=== PATIENT | female | born 1965 | race Two or more races ===

== ENCOUNTER 2016-11-17 01:39 | Emergency (ER) | payer SELFPAY ==
[~2016-11-17] VITALS: Ht 170.2 cm; Wt 83.9 kg
[~2016-11-17 01:39] MED LIST: DAPA5TAB PO; OMEP20CA5 PO
[2016-11-17 01:52] VITALS: BP 172/84
--- NOTE | 2016-11-17 03:40 | PHYS DOC ---
Past Medical History Past Medical History: Anxiety, Diabetes-Type II, GERD Past Surgical History: No Surgical History Alcohol Use: None Drug Use: None Adult General Chief Complaint Chief Complaint: ANXIETY/PANIC ATTACK [facility] This is a 51-year-old female who has known history of anxiety that awoke tonight with a panic attack. She states she had some mild chest discomfort as well as nausea prior to arrival. Upon my assessment the patient states her symptoms are improving and she is not requesting any medications at this times. She denies any significant history of health problems. Currently she denies any chest pain or shortness of breath. She is in no acute distress and talking in complete sentences. She states she has had anxiety attacks before that have presented similarly. She is unsure why she is having this episode. She denies any suicidal or homicidal ideation. Review of Systems Review of Systems Constitutional: Denies fever or chills [] Eyes: Denies change in visual acuity, redness, or eye pain [] HENT: Denies nasal congestion or sore throat [] Respiratory: Denies cough or shortness of breath [] Cardiovascular: No additional information not addressed in HPI [] GI: Denies abdominal pain, nausea, vomiting, bloody stools or diarrhea [] : Denies dysuria or hematuria [] Musculoskeletal: Denies back pain or joint pain [] Integument: Denies rash or skin lesions [] Neurologic: Denies headache, focal weakness or sensory changes [] Endocrine: Denies polyuria or polydipsia [] Allergies Allergies Allergies Coded Allergies Type Severity Reaction Last Updated Verified No Known Drug Allergies 05/08/15 No Physical Exam Physical Exam Constitutional: Well developed, well nourished, no acute distress, non-toxic appearance. [] HENT: Normocephalic, atraumatic, bilateral external ears normal, oropharynx moist, no oral exudates, nose normal. [] Eyes: PERRLA, EOMI, conjunctiva normal, no discharge. [] Neck: Normal range of motion, no tenderness, supple, no stridor. [] Cardiovascular:Heart rate regular rhythm, no murmur [] Lungs & Thorax: Bilateral breath sounds clear to auscultation [] Abdomen: Bowel sounds normal, soft, no tenderness, no masses, no pulsatile masses. [] Skin: Warm, dry, no erythema, no rash. [] Back: No tenderness, no CVA tenderness. [] Extremities: No tenderness, no cyanosis, no clubbing, ROM intact, no edema. [] Neurologic: Alert and oriented X 3, normal motor function, normal sensory function, no focal deficits noted. [] Psychologic: Affect normal, judgement normal, mood normal. [] Current Patient Data Vital Signs Vital Signs Date Time Temp Pulse Resp B/P Pulse Ox O2 Delivery O2 Flow Rate FiO2 11/17/16 01:52 98.5 82 20 98 Room Air 98.5 EKG EKG [] Radiology/Procedures Radiology/Procedures [] Course & Med Decision Making Course & Med Decision Making Pertinent Labs and Imaging studies reviewed. (See chart for details) This 51-year-old female was observed in the department for several hours and is now symptom free. Her symptoms were typical for panic attacks that she has had before. There is no indication at this time do any laboratory testing. Patient is not requesting any medications. She is not homicidal or suicidal. We will be discharging her home to follow closely for her anxiety symptoms. Dragon Disclaimer Dragon Disclaimer This electronic medical record was generated, in whole or in part, using a voice recognition dictation system. Departure Departure Impression: Primary Impression: Acute anxiety Disposition: 01 HOME, SELF-CARE Admitting Physician: Other Condition: STABLE Referrals: NON,STAFF (PCP) Patient Instructions: Anxiety and Panic Attacks, [id number] Additional Instructions: Please follow up with your primary doctor in the next 2-3 days for your anxiety attack. Return to the ER if you develop any worsening of your symptoms. ARRON ARMSTRONG DO Nov 17, 2016 03:40
== END 2016-11-17 03:49 | disposition home or self-care (01) ==
LOC: ER 01:39
DX: F41.9 Anxiety disorder, unspecified (principal); R11.0 Nausea; E11.9 Type 2 diabetes mellitus without complications; K21.9 Gastro-esophageal reflux disease without esophagitis
CPT/HCPCS: 82947; 99282; 99284

== ENCOUNTER 2017-08-21 23:45 | Emergency (ER) | payer SELFPAY ==
[~2017-08-21] VITALS: Ht 170.2 cm; Wt 90.7 kg
[~2017-08-21 23:45] MED LIST changes: +DICY10CA53 PO
[2017-08-22] MEDS ORDERED: ONDANSETRON PF 4 MG/2 ML VIAL. IV ONE (00:15)
[2017-08-22] MEDS ORDERED: IV NORMAL SALINE 1000ML BAG 1,000 ML IV ONE (00:15)
[2017-08-22 00:46] LABS: BASO % 0 % (0-3); EOS % 2 % (0-3); HEMATOCRIT 38.2 % (36.0-47.0); HEMOGLOBIN 12.8 g/dL (12.0-15.5); LYMPH # 2.4 x10^3/uL (1.0-4.8); LYMPH % 27 % (24-48); MEAN CORPUSCULAR HEMOGLOBIN 30 pg (25-35); MEAN CORPUSCULAR HGB CONC 34 g/dL (31-37); MEAN CORPUSCULAR VOLUME 90 fL (79-100); MONO % 6 % (0-9); NEUT % 65 % (31-73); PLATELET COUNT 237 x10^3/uL (140-400); RED BLOOD COUNT 4.23 x10^6/uL (3.50-5.40); RED CELL DISTRIBUTION WIDTH 13.8 % (11.5-14.5); WHITE BLOOD COUNT 8.7 x10^3/uL (4.0-11.0)
[2017-08-22 00:51] LABS: BILIRUBIN,URINE NEGATIVE (NEG); GLUCOSE,URINE >=1000 mg/dL (NEG); NITRITE,URINE NEGATIVE (NEG); PROTEIN,URINE NEGATIVE (NEG-TRACE); UROBILINOGEN,URINE 0.2 mg/dL (0.2 mg/dL)
[2017-08-22 00:58] LABS: BACTERIA,URINE 0 /HPF (0-FEW); RBC,URINE OCC /HPF (0-2); SQUAMOUS EPITHELIAL CELL,UR FEW /LPF; WBC,URINE OCC /HPF (0-4)
[2017-08-22 01:00] LABS: CALCIUM 9.6 mg/dL (8.5-10.1); CREATININE 0.8 mg/dL (0.6-1.0); GFR 75.9; POTASSIUM 4.4 mmol/L (3.5-5.1)
[2017-08-22 01:02] LABS: NEG OBC UR NEG; POS OBC UR POS
[2017-08-22 01:06] LABS: ALBUMIN 3.5 g/dL (3.4-5.0); ALBUMIN/GLOBULIN RATIO 0.8 (1.0-1.7); TOTAL BILIRUBIN 0.1 mg/dL (0.2-1.0); TOTAL PROTEIN 7.8 g/dL (6.4-8.2)
--- NOTE | 2017-08-22 01:48 | PHYS DOC ---
Past Medical History Past Medical History: Anxiety, Diabetes-Type II, GERD, Hypertension Past Surgical History: Other Additional Past Surgical Histo: RIGHT ANKLE Alcohol Use: None Drug Use: None Adult General Chief Complaint Chief Complaint: HYPERGLYCEMIA HPI HPI Patient is a 52 year old female with a history of type 2 diabetes and hypertension presents here today secondary to generalized weakness hyperglycemia and diarrhea. Patient denies any other symptomatology. Patient has any fevers shakes chills nausea vomiting cough cold Raynaud's. Patient denies any URI symptoms. Patient denies any change in her medications. Patient reports that she has been noncompliant with her Glucophage. Patient reports that she had in a rash with her and told her doctor and she is no longer taking it. Patient denies any liver kidney or lung problems. Patient does not smoke drink or do any drugs. Patient is allergic to any medications. Physical Exam Review of systems: Constitutional: Denies fever or chills Eyes: Denies change in visual acuity, redness, or eye pain HENT: Denies nasal congestion or sore throat Respiratory: Denies cough or shortness of breath All other systems were reviewed and found to be within normal limits, except as documented in this note. Physical exam: Constitutional: Well developed, well nourished, no acute distress, non-toxic appearance. HENT: Normocephalic, atraumatic, bilateral external ears normal, oropharynx moist, no oral exudates, nose normal. Eyes: PERRLA, EOMI, conjunctiva normal, no discharge. Neck: Normal range of motion, no tenderness, supple, no stridor. Cardiovascular:Heart rate regular rhythm, Lungs & Thorax: Bilateral breath sounds clear to auscultation Abdomen: Bowel sounds normal, soft, no tenderness, no masses, no pulsatile masses. Skin: Warm, dry, no erythema, no rash. Back: No tenderness, no CVA tenderness. Extremities: No tenderness, no cyanosis, no clubbing, ROM intact, no edema. Neurologic: Alert and oriented X 3, normal motor function, normal sensory function, no focal deficits noted. Psychologic: Affect normal, judgement normal, mood normal. Assessment and plan: 52-year-old female who presents here today secondary to an elevated blood sugar. Patient's blood sugar was found to be 213 in the ER. Patient does not have an anion gap. There is no evidence of acidosis. Patient does not present with any signs or symptoms that'll be consistent with DKA. Patient does appear to be clinically dehydrated by her symptoms. Patient has diarrhea and hyperglycemia. Patient was given a liter of normal saline the ER. Patient's labs have all been within normal limits. Patient be discharged home with strict instructions to call her doctor in the morning for an appointment as soon as possible so they can readjust her diabetes medications. Patient is clinically and hemodynamically stable for discharged home and she is very comfortable with this plan at this time. Current Medications Current Medications Current Medications Medications (Trade) Dose Ordered Sig/Sylvia Start Time Stop Time Status Last Admin Dose Admin Ondansetron HCl (Zofran) 4 mg 1X ONCE 08/22/17 00:15 08/22/17 00:16 DC 08/22/17 01:09 4 MG Sodium Chloride 1,000 ml @ 1,000 mls/hr 1X ONCE 08/22/17 00:15 08/22/17 01:14 DC 08/22/17 01:09 1,000 MLS/HR Allergies Allergies Allergies Coded Allergies Type Severity Reaction Last Updated Verified No Known Drug Allergies 05/08/15 No Current Patient Data Vital Signs Vital Signs Date Time Temp Pulse Resp B/P (MAP) Pulse Ox O2 Delivery O2 Flow Rate FiO2 08/22/17 00:15 98.6 90 16 138/89 (105) 96 Room Air 98.6 Lab Values Laboratory Tests Test 08/22/17 00:16 08/22/17 00:40 08/22/17 00:45 Glucose (Fingerstick) 214 mg/dL (70-99) H White Blood Count 8.7 x10^3/uL (4.0-11.0) Red Blood Count 4.23 x10^6/uL (3.50-5.40) Hemoglobin 12.8 g/dL (12.0-15.5) Hematocrit 38.2 % (36.0-47.0) Mean Corpuscular Volume 90 fL (79-100) Mean Corpuscular Hemoglobin 30 pg (25-35) Mean Corpuscular Hemoglobin Concent 34 g/dL (31-37) Red Cell Distribution Width 13.8 % (11.5-14.5) Platelet Count 237 x10^3/uL (140-400) Neutrophils (%) (Auto) 65 % (31-73) Lymphocytes (%) (Auto) 27 % (24-48) Monocytes (%) (Auto) 6 % (0-9) Eosinophils (%) (Auto) 2 % (0-3) Basophils (%) (Auto) 0 % (0-3) Neutrophils # (Auto) 5.7 x10^3uL (1.8-7.7) Lymphocytes # (Auto) 2.4 x10^3/uL (1.0-4.8) Monocytes # (Auto) 0.5 x10^3/uL (0.0-1.1) Eosinophils # (Auto) 0.1 x10^3/uL (0.0-0.7) Basophils # (Auto) 0.0 x10^3/uL (0.0-0.2) Urine Collection Type Unknown Urine Color Yellow Urine Clarity Clear Urine pH 6.0 Urine Specific [place] >=1.030 Urine Protein Negative mg/dL (NEG-TRACE) Urine Glucose (UA) >=1000 mg/dL (NEG) Urine Ketones (Stick) Negative mg/dL (NEG) Urine Blood Negative (NEG) Urine Nitrite Negative (NEG) Urine Bilirubin Negative (NEG) Urine Urobilinogen Dipstick 0.2 mg/dL (0.2 mg/dL) Urine Leukocyte Esterase Negative (NEG) Urine RBC Occ /HPF (0-2) Urine WBC Occ /HPF (0-4) Urine Squamous Epithelial Cells Few /LPF Urine Bacteria 0 /HPF (0-FEW) Sodium Level 138 mmol/L (136-145) Potassium Level 4.4 mmol/L (3.5-5.1) Chloride Level 103 mmol/L (98-107) Carbon Dioxide Level 25 mmol/L (21-32) Anion Gap 10 (6-14) Blood Urea Nitrogen 17 mg/dL (7-20) Creatinine 0.8 mg/dL (0.6-1.0) Estimated GFR (Cockcroft-Gault) 75.9 BUN/Creatinine Ratio 21 (6-20) H Glucose Level 224 mg/dL (70-99) H Calcium Level 9.6 mg/dL (8.5-10.1) Total Bilirubin 0.1 mg/dL (0.2-1.0) L Aspartate Amino Transferase (AST) 15 U/L (15-37) Alanine Aminotransferase (ALT) 28 U/L (14-59) Alkaline Phosphatase 135 U/L (46-116) H Total Protein 7.8 g/dL (6.4-8.2) Albumin 3.5 g/dL (3.4-5.0) Albumin/Globulin Ratio 0.8 (1.0-1.7) L Urine Test Negative (NEG) Laboratory Tests 08/22/17 00:40 Laboratory Tests 08/22/17 00:40 EKG EKG [] Radiology/Procedures Radiology/Procedures [] Course & Med Decision Making Course & Med Decision Making Pertinent Labs and Imaging studies reviewed. (See chart for details) [] Dragon Disclaimer Dragon Disclaimer This electronic medical record was generated, in whole or in part, using a voice recognition dictation system. Departure Departure Impression: Primary Impression: Hyperglycemia Additional Impressions: Diarrhea Dehydration Disposition: 01 HOME, SELF-CARE Condition: IMPROVED Referrals: NO PCP (PCP) Patient Instructions: 2400 Calorie Diet for Diabetes Meal Planning, Hyperglycemia Problem Qualifiers TEZ GREEN MD Aug 22, 2017 01:48
[2017-08-22 01:50] VITALS: BP 147/84
== END 2017-08-22 02:05 | disposition home or self-care (01) ==
LOC: ER 23:45
DX: E11.65 Type 2 diabetes mellitus with hyperglycemia (principal); E86.0 Dehydration; F41.9 Anxiety disorder, unspecified; I10 Essential (primary) hypertension; K21.9 Gastro-esophageal reflux disease without esophagitis
CPT/HCPCS: 36415; 80053; 81001; 81025; 82962; 85025; 96361; 96374; 99284; J2405; J7030

== ENCOUNTER 2017-10-13 01:27 | Emergency (ER) | payer OTHER ==
[2017-10-13 02:00] LABS: POC GLUCOSE 176 mg/dL (70-99)
[2017-10-13] MEDS: ONDANSETRON ODT 4 MG TAB.RAPDIS. PO (02:09)
[2017-10-13 03:01] LABS: BILIRUBIN,URINE NEGATIVE (NEG); CLARITY,URINE CLEAR; COLOR,URINE YELLOW; GLUCOSE,URINE >=1000 mg/dL (NEG); NITRITE,URINE NEGATIVE (NEG); PROTEIN,URINE NEGATIVE (NEG-TRACE); UROBILINOGEN,URINE 0.2 mg/dL (0.2 mg/dL)
[2017-10-13 03:28] LABS: BACTERIA,URINE 0 /HPF (0-FEW); RBC,URINE 0 /HPF (0-2); SQUAMOUS EPITHELIAL CELL,UR FEW /LPF; WBC,URINE 0 /HPF (0-4)
== END 2017-10-13 03:42 | disposition home or self-care (01) ==
LOC: ER 01:27
DX: E11.65 Type 2 diabetes mellitus with hyperglycemia (principal); R11.0 Nausea; K21.9 Gastro-esophageal reflux disease without esophagitis; I10 Essential (primary) hypertension
CPT/HCPCS: 81001; 82962; 99284; Q0162

== ENCOUNTER 2017-12-21 07:28 | Emergency (ER) | payer OTHER ==
[2017-12-21 08:29] LABS: BILIRUBIN,URINE NEGATIVE (NEG); CLARITY,URINE CLEAR; COLOR,URINE YELLOW; GLUCOSE,URINE NEGATIVE (NEG); NITRITE,URINE NEGATIVE (NEG); PROTEIN,URINE NEGATIVE (NEG-TRACE)
[2017-12-21 08:51] LABS: BACTERIA,URINE 0 /HPF (0-FEW); RBC,URINE 0 /HPF (0-2); SQUAMOUS EPITHELIAL CELL,UR FEW /LPF; WBC,URINE 0 /HPF (0-4)
[2017-12-21 09:02] LABS: ADD MAN DIFF? NO
[2017-12-21 09:06] LABS: BASO % 1 % (0-3); EOS # 0.1 x10^3/uL (0.0-0.7); EOS % 1 % (0-3); HEMATOCRIT 38.7 % (36.0-47.0); HEMOGLOBIN 13.1 g/dL (12.0-15.5); LYMPH % 24 % (24-48); MEAN CORPUSCULAR HEMOGLOBIN 30 pg (25-35); MEAN CORPUSCULAR HGB CONC 34 g/dL (31-37); MEAN CORPUSCULAR VOLUME 89 fL (79-100); MONO # 0.4 x10^3/uL (0.0-1.1); MONO % 5 % (0-9); NEUT # 5.8 x10^3uL (1.8-7.7); NEUT % 69 % (31-73); PLATELET COUNT 242 x10^3/uL (140-400); RED BLOOD COUNT 4.36 x10^6/uL (3.50-5.40); RED CELL DISTRIBUTION WIDTH 14.5 % (11.5-14.5); WHITE BLOOD COUNT 8.4 x10^3/uL (4.0-11.0)
[2017-12-21] MEDS: IV NORMAL SALINE 1000ML BAG 1,000 ML IV (09:16)
[2017-12-21] MEDS: ONDANSETRON PF 4 MG/2 ML VIAL. IV (09:16)
[2017-12-21 09:22] LABS: ANION GAP 10 (6-14); BLOOD UREA NITROGEN 11 mg/dL (7-20); BUN/CREATININE RATIO 16 (6-20); CALCIUM 9.6 mg/dL (8.5-10.1); CARBON DIOXIDE 28 mmol/L (21-32); CHLORIDE 103 mmol/L (98-107); CREATININE 0.7 mg/dL (0.6-1.0); GFR 88.6; GLUCOSE 160 mg/dL (70-99); POTASSIUM 3.8 mmol/L (3.5-5.1); SODIUM 141 mmol/L (136-145)
[2017-12-21 09:28] LABS: ALBUMIN 3.7 g/dL (3.4-5.0); ALBUMIN/GLOBULIN RATIO 0.8 (1.0-1.7); ALK PHOS 129 U/L (46-116); ALT (SGPT) 36 U/L (14-59); AST (SGOT) 14 U/L (15-37); TOTAL BILIRUBIN 0.3 mg/dL (0.2-1.0); TOTAL PROTEIN 8.2 g/dL (6.4-8.2)
[2017-12-21 23:21] LABS: NEG OBC UR NEG; POS OBC UR POS; U PREG PATIENT NEGATIVE (NEG)
== END 2017-12-21 10:08 | disposition home or self-care (01) ==
LOC: ER 07:28
DX: R10.13 Epigastric pain (principal); R11.2 Nausea with vomiting, unspecified; R19.7 Diarrhea, unspecified; E11.9 Type 2 diabetes mellitus without complications; I10 Essential (primary) hypertension; K21.9 Gastro-esophageal reflux disease without esophagitis
CPT/HCPCS: 36415; 80053; 81001; 81025; 85025; 96361; 96374; 99284-25; J2405; J7030

== ENCOUNTER 2017-12-21 22:48 | Emergency (ER) | payer OTHER ==
[2017-12-21 23:11] LABS: BILIRUBIN,URINE NEGATIVE (NEG); CLARITY,URINE CLOUDY; COLOR,URINE YELLOW; GLUCOSE,URINE NEGATIVE (NEG); NITRITE,URINE NEGATIVE (NEG); PROTEIN,URINE NEGATIVE (NEG-TRACE)
[2017-12-21 23:15] LABS: BACTERIA,URINE 0 /HPF (0-FEW); RBC,URINE 0 /HPF (0-2)
[2017-12-21 23:16] LABS: SQUAMOUS EPITHELIAL CELL,UR MOD /LPF
[2017-12-21 23:45] LABS: ADD MAN DIFF? NO
[2017-12-21 23:49] LABS: BASO % 1 % (0-3); EOS # 0.1 x10^3/uL (0.0-0.7); EOS % 1 % (0-3); HEMATOCRIT 35.6 % (36.0-47.0); HEMOGLOBIN 11.9 g/dL (12.0-15.5); LYMPH # 3.3 x10^3/uL (1.0-4.8); LYMPH % 36 % (24-48); MEAN CORPUSCULAR HEMOGLOBIN 30 pg (25-35); MEAN CORPUSCULAR HGB CONC 34 g/dL (31-37); MEAN CORPUSCULAR VOLUME 88 fL (79-100); MONO # 0.7 x10^3/uL (0.0-1.1); MONO % 7 % (0-9); NEUT % 55 % (31-73); PLATELET COUNT 283 x10^3/uL (140-400); RED BLOOD COUNT 4.02 x10^6/uL (3.50-5.40); RED CELL DISTRIBUTION WIDTH 14.5 % (11.5-14.5); WHITE BLOOD COUNT 9.2 x10^3/uL (4.0-11.0)
[2017-12-21] MEDS: ONDANSETRON PF 4 MG/2 ML VIAL. IV (23:53)
[2017-12-21] MEDS: IV NORMAL SALINE 1000ML BAG 1,000 ML IV (23:53)
[2017-12-21 23:56] LABS: ANION GAP 9 (6-14); BLOOD UREA NITROGEN 9 mg/dL (7-20); BUN/CREATININE RATIO 13 (6-20); CALCIUM 9.3 mg/dL (8.5-10.1); CARBON DIOXIDE 27 mmol/L (21-32); CHLORIDE 105 mmol/L (98-107); CREATININE 0.7 mg/dL (0.6-1.0); GFR 88.6; GLUCOSE 128 mg/dL (70-99); POTASSIUM 3.9 mmol/L (3.5-5.1); SODIUM 141 mmol/L (136-145)
[2017-12-22 00:03] LABS: ALBUMIN 3.3 g/dL (3.4-5.0); ALBUMIN/GLOBULIN RATIO 0.8 (1.0-1.7); ALK PHOS 118 U/L (46-116); ALT (SGPT) 33 U/L (14-59); AST (SGOT) 16 U/L (15-37); LIPASE 87 U/L (73-393); TOTAL BILIRUBIN 0.2 mg/dL (0.2-1.0); TOTAL PROTEIN 7.5 g/dL (6.4-8.2)
[2017-12-22 00:14] LABS: NEG OBC UR NEG; POS OBC UR POS; U PREG PATIENT NEGATIVE (NEG)
== END 2017-12-22 01:52 | disposition home or self-care (01) ==
LOC: ER 12-22 01:52
DX: K29.70 Gastritis, unspecified, without bleeding (principal); G89.29 Other chronic pain; E11.9 Type 2 diabetes mellitus without complications; I10 Essential (primary) hypertension; K21.9 Gastro-esophageal reflux disease without esophagitis
CPT/HCPCS: 36415; 74176; 80053; 81001; 81025; 83690; 85025; 87086; 96361; 96374; 99285-25; J2405; J7030

== ENCOUNTER 2018-03-10 00:46 | Emergency (ER) | payer OTHER | END 2018-03-10 01:05 | disposition left against medical advice (07) | LOC: ER 00:46 | DX: R10.9 Unspecified abdominal pain (principal); R11.2 Nausea with vomiting, unspecified; Z53.21 Procedure and treatment not carried out due to patient leaving prior to being seen by health care provider ==

== ENCOUNTER → 2018-12-18 | Outpatient (CLI) | payer OTHER ==
[2017-12-22 00:32] VITALS: BP 167/85
[~2018-12-18] MED LIST changes: +ALBU2.5V8 INH; +AZIT250T PO; +BENZ100C PO; +HYDR115S2 PO; +LISI2.5T PO; +METF500T16 PO; +ONDA4TAB10 PO; +ONDA4TAB10 SL
--- NOTE | 2018-12-18 14:06 | KCIC ---
3 views of the right ankle compared to similar study dated October 26, 2014 for right ankle and foot pain, old injury with surgery in 1985. FINDINGS: There is no fracture, dislocation, or acute osseous abnormality identified. There is deformity about the lateral aspect of the ankle with old healed fracture of the distal fibula and tibiofibular articulation. Ankle mortise is symmetric however. Overall appearance is stable compared to the prior exam. IMPRESSION: 1. No fracture or acute osseous abnormality. 2. Old posttraumatic changes of the lateral aspect of the ankle joint. Electronically signed by: Gen Esqueda MD (12/18/2018 2:03 PM) [facility]
--- NOTE | 2018-12-18 14:12 | KCIC ---
3 views of the right foot without comparison for right ankle and foot pain, old injury with surgery in 1985. FINDINGS: There is no fracture, dislocation, or acute osseous normality identified. No ankle joint effusion is seen. Some distortion of the ankle joint is consistent with old healed ankle trauma. 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 There is also a peculiar appearance to the first tarsometatarsal joint, with a bipartite appearance to the first cuneiform, seen on the AP view of the foot. This is developmental and of doubtful clinical significance. IMPRESSION: 1. No fracture or acute osseous abnormality of the right foot. 2. 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 This is of doubtful clinical significance, but could predispose to osteoarthritis in this area which would manifest as focal pain. Electronically signed by: Gen Esqueda MD (12/18/2018 2:09 PM) [facility]
== END | disposition home or self-care (01) ==
LOC: KCIC 11:29
PROVIDERS: ATTEND Nurse Practitioner Gerontology
DX: M79.671 Pain in right foot (principal); M25.571 Pain in right ankle and joints of right foot; Z98.890 Other specified postprocedural states
CPT/HCPCS: 73610; 73630

== ENCOUNTER 2019-03-07 06:11 | Emergency (ER) | payer OTHER ==
[~2019-03-07] VITALS: Ht 177.8 cm; Wt 74.8 kg
[~2019-03-07 06:11] MED LIST changes: -ALBU2.5V8 INH; -AZIT250T PO; -BENZ100C PO; -HYDR115S2 PO
[2019-03-07 06:34] VITALS: BP 140/95
[2019-03-07] MEDS ORDERED: AZIT250T PO (06:44)
[2019-03-07] MEDS ORDERED: BENZ100C PO (06:44)
[2019-03-07] MEDS ORDERED: HYDR115S2 PO (06:44)
[2019-03-07] MEDS ORDERED: ALBU2.5V8 INH (06:44)
--- NOTE | 2019-03-07 06:45 | PHYS DOC ---
Past Medical History Past Medical History: Diabetes-Type II Past Surgical History: No Surgical History Additional Past Surgical Histo: RIGHT ANKLE Alcohol Use: Occasionally Drug Use: None Adult General Chief Complaint Chief Complaint: COUGH HPI HPI Patient is a 54 year old female who presents with complaining of cough. Patient complaining of nonproductive cough for 10 days with intermittent episodes of shortness of breath and subjective fever. Patient complaining of nausea and nasal congestion. Patient denies vomiting, diarrhea, sick contact, chest pain. Patient with several irsx-rhz-[id number] medication without improvement of her condition. Review of Systems Review of Systems Constitutional: Reports fever Eyes: Denies change in visual acuity, redness, or eye pain [] HENT: Reports nasal congestion, denies sore throat [] Respiratory: Reports cough and shortness of breath since Cardiovascular: No additional information not addressed in HPI [] GI: Denies abdominal pain, vomiting, bloody stools or diarrhea, reports nausea [] : Denies dysuria or hematuria [] Musculoskeletal: Denies back pain or joint pain [] Integument: Denies rash or skin lesions [] Neurologic: Denies headache, focal weakness or sensory changes [] Endocrine: Denies polyuria or polydipsia [] All other systems were reviewed and found to be within normal limits, except as documented in this note. Allergies Allergies Allergies Coded Allergies Type Severity Reaction Last Updated Verified No Known Drug Allergies 05/08/15 No Physical Exam Physical Exam Constitutional: Well developed, well nourished, milddistress, non-toxic appearance. [] HENT: Normocephalic, atraumatic, bilateral external ears normal, oropharynx moist, no oral exudates, nose normal. [] Eyes: PERRLA, EOMI, conjunctiva normal, no discharge. [] Neck: Normal range of motion, no tenderness, supple, no stridor. [] Cardiovascular:Heart rate regular rhythm, no murmur [] Lungs & Thorax: Bilateral breath sounds clear to auscultation [] Abdomen: Bowel sounds normal, soft, no tenderness, no masses, no pulsatile masses. [] Skin: Warm, dry, no erythema, no rash. [] Back: No tenderness, no CVA tenderness. [] Extremities: No tenderness, no cyanosis, no clubbing, ROM intact, no edema. [] Neurologic: Alert and oriented X 3, normal motor function, normal sensory function, no focal deficits noted. [] Psychologic: Affect normal, judgement normal, mood normal. [] Current Patient Data Vital Signs Vital Signs Date Time Temp Pulse Resp B/P (MAP) Pulse Ox O2 Delivery O2 Flow Rate FiO2 03/07/19 06:34 98.3 79 17 140/95 (110) 100 Room Air 98.3 EKG EKG [] Radiology/Procedures Radiology/Procedures [] Course & Med Decision Making Course & Med Decision Making Evaluation of patient in ER showed 54-year-old nonsmoking female patient complaining of cough and congestion and shortness of breath for 10 days. Patient had unremarkable physical exam and vital sign. Plan discharge patient home with diagnosis of acute bronchitis. Dragon Disclaimer Dragon Disclaimer This electronic medical record was generated, in whole or in part, using a voice recognition dictation system. Departure Departure Impression: Primary Impression: Acute bronchitis Disposition: HOME, SELF-CARE (at 0642) Condition: STABLE Referrals: Ramy MENA MD (PCP) Patient Instructions: Acute Bronchitis Additional Instructions: Drink plenty of liquids Follow-up with your primary care physician in 3-5 days Return to ER if not getting better Scripts Azithromycin (ZITHROMAX) 250 Mg Tablet 1 PKG PO UD for infection, #1 PKG Prov: SUNNI GARCIA MD 03/07/19 Hydrocodone/Chlorphen P-Stirex (Tussionex Pennkinetic Susp) 115 Ml Randa.er.12h 5 ML PO BID for cough and congestion, #60 ML Prov: SUNNI GARCIA MD 03/07/19 Benzonatate (TESSALON PERLE) 100 Mg Capsule 1 CAP PO TID for cough, #21 CAP Prov: SUNNI GARCIA MD 03/07/19 Albuterol Sulfate (PROAIR HFA INHALER) 8.5 Gm Hfa.aer.ad 2 PUFF INH PRN Q6HRS PRN for SHORTNESS OF BREATH, #1 INHALER 0 Refills Prov: SUNNI GARCIA MD 03/07/19 Problem Qualifiers Primary Impression: Acute bronchitis Bronchitis organism: unspecified organism Qualified Codes: J20.9 - Acute bronchitis, unspecified SUNNI GARCIA MD Mar 07, 2019 06:45
== END 2019-03-07 06:55 | disposition home or self-care (01) ==
LOC: ER 06:11
DX: J20.9 Acute bronchitis, unspecified (principal); E11.9 Type 2 diabetes mellitus without complications
CPT/HCPCS: 99283

== ENCOUNTER 2019-08-21 08:03 | Emergency (ER) | payer OTHER ==
[~2019-08-21] VITALS: Ht 170.2 cm; Wt 78.9 kg
[~2019-08-21 08:03] MED LIST changes: +ALBU2.5V8 INH; +AZIT250T PO; +BENZ100C PO; +HYDR115S2 PO
[2019-08-21 09:03] VITALS: BP 121/75
--- NOTE | 2019-08-21 10:08 | RAD ---
Left Leg Venous Doppler Ultrasound, 08/21/2019 Indication: Left calf and ankle pain Comparison: None available Procedure: Real-time grayscale, color flow color duplex Doppler and spectral analysis are obtained with and without compression in the area of the common femoral vein, superficial femoral vein - femoral vein junction, main femoral vein (superficial femoral vein) and popliteal vein. Veins of the proximal calf are also imaged. Findings: There is normal duplex flow, color flow and compressibility of all visualized vein segments. No evidence of deep venous thrombus is present. Impression: Negative venous Doppler of left lower extremity Electronically signed by: Cheryl Tellez MD (08/21/2019 10:05 AM) [facility]
--- NOTE | 2019-08-21 11:06 | PHYS DOC ---
Past Medical History Past Medical History: Diabetes-Type II Past Surgical History: No Surgical History Additional Past Surgical Histo: RIGHT ANKLE Alcohol Use: Occasionally Drug Use: None Adult General Chief Complaint Chief Complaint: LOWER EXT PAIN HPI HPI Patient is a 54 year old female with history of diabetes mellitus who presents with complaint of left ankle and leg pain. Patient complaining of left ankle and calf pain for more than one year without known injury that getting force activity. Patient states she was seen by her primary care physician and treated with gabapentin but her pain is not getting better. Patient rated her pain 5/10. Review of Systems Review of Systems Constitutional: Denies fever or chills [] Eyes: Denies change in visual acuity, redness, or eye pain [] HENT: Denies nasal congestion or sore throat [] Respiratory: Denies cough or shortness of breath [] Cardiovascular: No additional information not addressed in HPI [] GI: Denies abdominal pain, nausea, vomiting, bloody stools or diarrhea [] : Denies dysuria or hematuria [] Musculoskeletal: Denies back pain, reports joint pain [] Integument: Denies rash or skin lesions [] Neurologic: Denies headache, focal weakness or sensory changes [] Endocrine: Denies polyuria or polydipsia [] All other systems were reviewed and found to be within normal limits, except as documented in this note. Allergies Allergies Allergies Coded Allergies Type Severity Reaction Last Updated Verified No Known Drug Allergies 05/08/15 No Physical Exam Physical Exam Constitutional: Well developed, well nourished, mild distress, non-toxic appearance. [] HENT: Normocephalic, atraumatic. Eyes: PERRLA, EOMI, conjunctiva normal, no discharge. [] Neck: Normal range of motion, no tenderness, supple, no stridor. [] Cardiovascular:Heart rate regular rhythm, no murmur [] Lungs & Thorax: Bilateral breath sounds clear to auscultation [] Extremities: Left lower extremity without deformity or edema or tenderness . Neurologic: Alert and oriented X 3, no focal deficits noted. [] Psychologic: Affect anxious, judgement normal, mood normal. [] Current Patient Data Vital Signs Vital Signs Date Time Temp Pulse Resp B/P (MAP) Pulse Ox O2 Delivery O2 Flow Rate FiO2 08/21/19 09:03 98.2 77 16 121/75 (90) 99 Room Air 98.2 EKG EKG [] Radiology/Procedures Radiology/Procedures [][address] [address] IMAGING REPORT Signed PATIENT: JEANNA ISAACS ACCOUNT: [id number] : 1965 LOCATION: ER AGE: 54 SEX: F EXAM STATUS: DEP ER ORD. PHYSICIAN: SUNNI GARCIA MD REASON: chronic left ankle pain radiating up leg PROCEDURE: ANKLE LEFT 3V 3 views left ankle HISTORY: Chronic pain AP lateral oblique views The tibiotalar relationship is normal. There is subtle lucency within the lateral malleolus without interruption of cortex. The remaining visualized osseous structures appear normal. There is no soft tissue swelling. IMPRESSION: Subtle lucency in the lateral malleolus. This could be normal however a lytic bone lesion is possible. Although there are x-rays of the right ankle available for correlation these are not helpful. If symptoms persist and there is clinical concern, consider further workup such as a a bone scan. Electronically signed by: Missy Phan III, MD (08/21/2019 11:24 AM) [id number] DICTATED and SIGNED BY: MISSY PHAN III, MD DATE: 08/21/[address] [address] IMAGING REPORT Signed PATIENT: JEANNA ISAACS ACCOUNT: [id number] : 1965 LOCATION: ER AGE: 54 SEX: F EXAM STATUS: REG ER ORD. PHYSICIAN: SUNNI GARCIA MD REASON: left calf pain PROCEDURE: VENOUS LOWER EXTREMITY LEFT Left Leg Venous Doppler Ultrasound, 08/21/2019 Indication: Left calf and ankle pain Comparison: None available Procedure: Real-time grayscale, color flow color duplex Doppler and spectral analysis are obtained with and without compression in the area of the common femoral vein, superficial femoral vein - femoral vein junction, main femoral vein (superficial femoral vein) and popliteal vein. Veins of the proximal calf are also imaged. Findings: There is normal duplex flow, color flow and compressibility of all visualized vein segments. No evidence of deep venous thrombus is present. Impression: Negative venous Doppler of left lower extremity Electronically signed by: Cheryl Tellez MD (08/21/2019 10:05 AM) [facility] DICTATED and SIGNED BY: CHERYL TELLEZ MD DATE: 08/21/19 1005 Course & Med Decision Making Course & Med Decision Making Pertinent Imaging studies reviewed. (See chart for details) Evaluation of patient in the showed 54-year-old male patient with chronic left lower extremity pain for more than one year unremarkable physical exam and x-ray and venous Doppler study. She was advised to follow-up with her primary care physician regarding chronic pain. I've spoken with the patient and/or caregivers. I've explained the patient's condition, diagnosis and treatment plan based on information available to me at this time. I've answered the patient's and/or caregivers questions and addressed any concerns. The patient and/or caregivers have a good understanding the patient's diagnosis, condition and treatment plan as can be expected at this point. Vital signs have been stabilized. The patient's condition is stable for discharge from the emergency department. The patient will pursue further outpatient evaluation with her primary care provider or other designated consulting physician as outlined in the discharge instructions. Patient and/or caregivers are agreeable to this plan of care and follow-up instructions have been explained in detail. The patient and/or caregivers have received these instructions in written format and expressed understanding of these discharge instructions. The patient and her caregivers are aware that if any significant change in condition or worsening of symptoms should prompt him to immediately return to this of the closest emergency department. If an emergent department is not readily available I would encourage him to call 911. Shana Disclaimer Dragon Disclaimer This electronic medical record was generated, in whole or in part, using a voice recognition dictation system. Departure Departure Impression: Primary Impression: Chronic leg pain Disposition: 01 HOME, SELF-CARE (at 1104) Condition: IMPROVED Referrals: Ramy MENA MD (PCP) Patient Instructions: Ankle Pain Additional Instructions: Continue home medication Follow-up with your primary care physician in 3-5 days for further evaluation of chronic leg and ankle pain Return to ER if not getting better Problem Qualifiers Primary Impression: Chronic leg pain Laterality: left Qualified Codes: M79.605 - Pain in left leg; G89.29 - Other chronic pain SUNNI GARCIA MD Aug 21, 2019 11:06
--- NOTE | 2019-08-21 11:27 | RAD ---
3 views left ankle HISTORY: Chronic pain AP lateral oblique views The tibiotalar relationship is normal. There is subtle lucency within the lateral malleolus without interruption of cortex. The remaining visualized osseous structures appear normal. There is no soft tissue swelling. IMPRESSION: Subtle lucency in the lateral malleolus. This could be normal however a lytic bone lesion is possible. Although there are x-rays of the right ankle available for correlation these are not helpful. If symptoms persist and there is clinical concern, consider further workup such as a a bone scan. Electronically signed by: Carlitos Batista III, MD (08/21/2019 11:24 AM) [id number]
== END 2019-08-21 11:13 | disposition home or self-care (01) ==
LOC: ER 08:03
DX: G89.29 Other chronic pain (principal); M79.605 Pain in left leg; M25.572 Pain in left ankle and joints of left foot; E11.9 Type 2 diabetes mellitus without complications; Z98.890 Other specified postprocedural states
CPT/HCPCS: 73610; 93971; 99284-25

== ENCOUNTER 2019-10-08 19:24 | Emergency (ER) | payer OTHER ==
[~2019-10-08] VITALS: Ht 170.2 cm; Wt 77.1 kg
[2019-10-08 19:42] VITALS: BP 148/98
--- NOTE | 2019-10-08 20:11 | PHYS DOC ---
Past Medical History Past Medical History: Diabetes-Type II Past Surgical History: No Surgical History Additional Past Surgical Histo: RIGHT ANKLE Alcohol Use: Occasionally Drug Use: None Adult General Chief Complaint Chief Complaint: FLU SYMPTOM HPI HPI Patient is a 54 year old female who presents with body aches, chills, nausea, diarrhea, left ear pain, sore throat, decreased appetite all started last night. She rates her overall discomfort and pain an 8 out of 10. She states she took Pepto-Bismol today. Patient states that Friday before she was diagnosed with influenza A. Review of Systems Review of Systems HENT: nasal congestion or sore throat [] GI: Denies abdominal pain. + nausea, denies vomiting, bloody stools. +diarrhea [] Musculoskeletal: Body aches. Denies back pain or joint pain [] All other systems were reviewed and found to be within normal limits, except as documented in this note. Allergies Allergies Allergies Coded Allergies Type Severity Reaction Last Updated Verified No Known Drug Allergies 05/08/15 No Physical Exam Physical Exam Constitutional: Well developed, well nourished, no acute distress, non-toxic appearance. [] HENT: Normocephalic, atraumatic, bilateral external ears normal, oropharynx moist, no oral exudates, nose normal. [] Eyes: PERRLA, EOMI, conjunctiva normal, no discharge. [] Neck: Normal range of motion, no tenderness, supple, no stridor. [] Cardiovascular:Heart rate regular rhythm, no murmur [] Lungs & Thorax: Bilateral breath sounds clear to auscultation [] Abdomen: Bowel sounds normal, soft, no tenderness, no masses, no pulsatile masses. [] Skin: Warm, dry, no erythema, no rash. [] Back: No tenderness, no CVA tenderness. [] Extremities: No tenderness, no cyanosis, no clubbing, ROM intact, no edema. [] Neurologic: Alert and oriented X 3, normal motor function, normal sensory function, no focal deficits noted. [] Psychologic: Affect normal, judgement normal, mood normal. Normal physical exam [] Current Patient Data Vital Signs Vital Signs Date Time Temp Pulse Resp B/P (MAP) Pulse Ox O2 Delivery O2 Flow Rate FiO2 10/08/19 19:42 98.2 77 12 148/98 (115) 99 Room Air 98.2 Lab Values Laboratory Tests Test 10/08/19 20:02 Influenza Type A Antigen Negative (NEGATIVE) Influenza Type B Antigen Negative (NEGATIVE) EKG EKG [] Radiology/Procedures Radiology/Procedures [] Course & Med Decision Making Course & Med Decision Making Skin pink warm and dry. Alert and oriented. Ambulates with steady gait. PERRLA. Lungs are clear to auscultation lobes. Throat is pink without exudates or swelling. There is postnasal drip. Bilateral Tympanic is white. Vital signs within normal limits. Patient denies chest pain, shortness of air, cough, dizziness, headache, syncope, weakness, numbness or tingling, visual changes, abdominal pain. Dragon Disclaimer Dragon Disclaimer This electronic medical record was generated, in whole or in part, using a voice recognition dictation system. Departure Departure Impression: Primary Impression: Generalized body aches Additional Impressions: Nasal congestion Nausea Sore throat Disposition: HOME, SELF-CARE Condition: STABLE Referrals: Ramy MENA MD (PCP) Patient Instructions: Upper Respiratory Infection, Adult Additional Instructions: Drink plenty of fluids. Take medications as prescribed. Use ibuprofen or Tylenol to help with pain. Scripts Ondansetron (ONDANSETRON ODT) 4 Mg Tab.rapdis 1 TAB PO PRN Q6-8HRS, #20 TAB Prov: AVEL HDZ APRN 10/08/19 Amoxicillin (AMOXICILLIN) 500 Mg Capsule 1 CAP PO BID, #20 CAP Prov: AVEL HDZ APRN 10/08/19 Problem Qualifiers AVEL HDZ APRN Oct 08, 2019 20:11
[2019-10-08 20:35] LABS: INFLUENZA A PATIENT NEGATIVE (NEGATIVE); INFLUENZA B PATIENT NEGATIVE (NEGATIVE)
[2019-10-08] MEDS ORDERED: AMOX500C PO (20:51)
[2019-10-08] MEDS ORDERED: ONDA4TAB12 PO (20:51)
== END 2019-10-08 20:57 | disposition home or self-care (01) ==
LOC: ER 19:24
DX: J02.9 Acute pharyngitis, unspecified (principal); M79.10 Myalgia, unspecified site; H92.02 Otalgia, left ear; R19.7 Diarrhea, unspecified; E11.9 Type 2 diabetes mellitus without complications
CPT/HCPCS: 87804; 99284

== ENCOUNTER → 2020-03-14 | Outpatient (CLI) | payer OTHER ==
[~2020-03-14] MED LIST changes: +AMOX500C PO; +ONDA4TAB12 PO
--- NOTE | 2020-03-14 14:37 | RAD ---
5 view cervical spine radiographs 03/14/2020 CLINICAL HISTORY: Neck pain. History of previous injury. AP, lateral, bilateral oblique and AP open mouth odontoid digital radiographs of the cervical spine were obtained. Minimal lateral curvature of the cervical spine is seen convex to the left. There is slight reversal of the normal cervical lordosis. Degenerative changes consisting of disc space narrowing, subchondral sclerosis and mild to moderate anterior and posterior vertebral body osteophyte formation are seen involving the C5-6 and C6-7 disc spaces predominantly. Degenerative changes are seen involving the uncovertebral and facet joints throughout the mid and lower cervical disc spaces. Mild bilateral neural foraminal stenosis is seen at C5-6. No prevertebral soft tissue swelling is noted. IMPRESSION: Degenerative changes are seen involving cervical spine as discussed above. No acute osseous abnormality is seen. Electronically signed by: Fabio Sam MD (03/14/2020 2:34 PM) [id number]
== END ==
LOC: LAB 11:16
PROVIDERS: ATTEND Family Medicine
DX: M47.812 Spondylosis without myelopathy or radiculopathy, cervical region (principal); M48.02 Spinal stenosis, cervical region; M25.78 Osteophyte, vertebrae; G95.89 Other specified diseases of spinal cord
CPT/HCPCS: 72050

== ENCOUNTER → 2020-03-21 | Outpatient (CLI) | payer OTHER ==
[2020-03-22 20:08] LABS: ANA INTERP Negative (.)
[2020-03-23 16:10] LABS: ALBUM 3.7 g/dL (2.9-4.4); ALPHA 1 0.2 g/dL (0.0-0.4); ALPHA 2 0.9 g/dL (0.4-1.0); GAMMA 1.4 g/dL (0.4-1.8); PROTEIN TOTAL 7.2 g/dL (6.0-8.5); SPEP AG RATIO 1.1 (0.7-1.7)
== END | disposition home or self-care (01) ==
LOC: LAB 09:38
PROVIDERS: ATTEND Psychiatry & Neurology Neurology with Special Qualifications in Child Neurology
DX: E11.42 Type 2 diabetes mellitus with diabetic polyneuropathy (principal); R20.0 Anesthesia of skin; R53.1 Weakness
CPT/HCPCS: 36415; 82607; 82746; 84165; 86038; 86140

== ENCOUNTER → 2020-04-25 | Outpatient (CLI) | payer OTHER | END | disposition home or self-care (01) | LOC: LAB 14:51 | PROVIDERS: ATTEND Nurse Practitioner Family | DX: R20.0 Anesthesia of skin (principal); R53.1 Weakness | CPT/HCPCS: 36415; 86140 ==

== ENCOUNTER 2020-07-26 05:32 | Emergency (ER) | payer OTHER ==
[~2020-07-26] VITALS: Ht 170.2 cm; Wt 77.2 kg
[2020-07-26 05:33] VITALS: BP 149/88
[2020-07-26] MEDS ORDERED: CETI1TAB7 PO (06:59)
[2020-07-26] MEDS ORDERED: ONDA4TAB7 PO (06:59)
--- NOTE | 2020-07-26 06:59 | ED.ADGEN ---
Past Medical History Past Medical History: Diabetes-Type II Past Surgical History: Other Additional Past Surgical Histo: RIGHT ANKLE Smoking Status: Former Smoker Alcohol Use: Occasionally Drug Use: None General Adult EDM: Chief Complaint: EARACHE/EAR PAIN HPI: HPI: Patient is a 55-year-old poor historian who presents to the emergency room with vague complaints. She states that she has earache, nasal congestion, loss of appetite, nausea, epigastric discomfort. She denies any shortness of breath, cough, fever, chills, sweats, sore throat. She states that her joints hurt throughout her body. This started yesterday morning. She is unable to tell me if this is gotten worse. When asked what brought her in she states that I do not know. She is taking her medications for diabetes. Review of Systems: Review of Systems: General: Denies fever, chills, sweats, fatigue Eyes: Denies drainage, blurred vision, eye redness HENT: Reports congestion, earache Respiratory: Denies cough, shortness of breath, wheezing Cardiac: Denies edema, palpitations, chest pain GI: Denies abdominal pain, vomiting. Reports nausea MSK: Denies back pain, neck pain reports myalgias Skin: Denies rash, jaundice Neuro: Denies headache, dizziness Psychiatric: Denies SI/HI Current Medications: Current Medications Medications (Trade) Dose Ordered Sig/Sylvia Start Time Stop Time Status Last Admin Dose Admin Multi-Ingredient Mouthwash/Gargle (Gi Cocktail) 20 ml 1X ONCE 07/26/20 07:00 07/26/20 07:01 DC 07/26/20 06:55 20 ML Allergies: Allergies: Allergies Coded Allergies Type Severity Reaction Last Updated Verified No Known Drug Allergies 05/08/15 No Physical Exam: PE: General: Awake, alert, NAD. Well Nourished, well hydrated. Cooperative HEENT: Atraumatic, EOMI, PERRL, airway patent, moist oral mucosa Neck: Supple, trachea midline Respiratory: CTA bilaterally, normal effort, no wheezing/crackles CV: RRR, no murmur, cap refill <2 GI: Soft, nondistended, nontender, no masses MSK: No obvious deformities Skin: Warm, dry, intact Neuro: A&O x3, speech NL, sensory and motor grossly intact, no focal deficits Psych: Normal affect, normal mood, not suicidal or homicidal Current Patient Data: Vital Signs: Vital Signs Date Time Temp Pulse Resp B/P (MAP) Pulse Ox O2 Delivery O2 Flow Rate FiO2 07/26/20 05:33 98.2 94 20 149/88 (108) 98 Room Air 98.2 EKG: EKG: [] Heart Score: Risk Factors: Risk Factors: DM, Current or recent (<one month) smoker, HTN, HLP, family history of CAD, obesity. Risk Scores: Score 0 - 3: 2.5% MACE over next 6 weeks - Discharge Home Score 4 - 6: 20.3% MACE over next 6 weeks - Admit for Clinical Observation Score 7 - 10: 72.7% MACE over next 6 weeks - Early Invasive Strategies Radiology/Procedures: Radiology/Procedures: [] Course & Med Decision Making: Course & Med Decision Making Pertinent Labs and Imaging studies reviewed. (See chart for details) Patient is 55-year-old female who presents to the emergency room with a complaints. History is very difficult to obtain. She overall is well- appearing. She does not have any cough, shortness of breath, hypoxia. I did offer her coronavirus test. EKG was done as she is epigastric pain was normal. Patient does not appear to need a cardiac work-up at this time as this is very atypical for cardiac pathology. We will treat her symptomatically. Discussed with her that if her symptoms get worse she should return to the emergency room. Patient's test results and vitals while in the ED were fully reviewed and discussed with the patient. Patient is stable and at this time does not need admission to the hospital. We have discussed strict return precautions and the importance of following up with their Primary Care Physician. Patient stated u nderstanding and was given an opportunity to ask any questions. Patient is in agreement with plan. Dragon Disclaimer: Dragon Disclaimer: This electronic medical record was generated, in whole or in part, using a voice recognition dictation system. Departure Departure Impression: Primary Impression: Viral syndrome Disposition: 01 DC HOME SELF CARE/HOMELESS Condition: STABLE Referrals: Ramy MENA MD (PCP) Patient Instructions: Viral Syndrome Scripts Ondansetron Hcl (ZOFRAN) 4 Mg Tablet 1 TAB PO PRN Q6-8HRS for nausea, #12 TAB Prov: FAVIAN SIERRA MD 10/21/20 Cetirizine Hcl/Pseudoephedrine (ZYRTEC-D TABLET) 1 Each Tab.er.12h 1 TAB PO BID, #20 TAB Prov: FAVIAN SIERRA MD 07/26/20 FAVIAN SIERRA MD Jul 26, 2020 06:59
[2020-07-26] MEDS ORDERED: LIDO:MAALOX 1:1 20 ML SINGLE DOSE. SWSW ONE (07:00)
--- NOTE | 2020-07-26 12:04 | EKG ---
[facility] [address] [place] [address] Test Date: 2020-07-26 Test Time: 07:27:33 Pat Name: JEANNA ISAACS Department: Room: Gender: F Rn Hematology: : 1965 Requested By: FAVIAN SIERRA Order Number: [id number] Reading MD: Measurements Intervals [place] Rate: 70 P: 54 AK: 192 QRS: 34 QRSD: 80 T: 48 QT: 374 QTc: 407 Interpretive Statements SINUS RHYTHM NORMAL ECG RI6.02 No previous ECG available for comparison
--- NOTE | 2020-07-28 09:05 | NUR ---
IP: Informed pt of negative COIVD test. Pt verbalized understanding.
== END 2020-07-26 07:32 | disposition home or self-care (01) ==
LOC: ER 05:32
DX: B34.9 Viral infection, unspecified (principal); Z20.828 Contact with and (suspected) exposure to other viral communicable diseases; E11.9 Type 2 diabetes mellitus without complications; Z87.891 Personal history of nicotine dependence
CPT/HCPCS: 93005; 99284; C9803; U0003

== ENCOUNTER 2020-08-13 06:46 | Emergency (ER) | payer OTHER ==
[~2020-08-13] VITALS: Ht 170.2 cm; Wt 80.0 kg
[~2020-08-13 06:46] MED LIST changes: +CETI1TAB7 PO; +ONDA4TAB7 PO
[2020-08-13] MEDS ORDERED: LIDO:MAALOX 1:1 20 ML SINGLE DOSE. SWSW ONE (07:30)
[2020-08-13 08:01] LABS: CALCIUM 9.6 mg/dL (8.5-10.1); CREATININE 0.8 mg/dL (0.6-1.0); GFR 90.8; POTASSIUM 4.4 mmol/L (3.5-5.1)
[2020-08-13 08:05] LABS: BASO % 0 % (0-3); EOS % 0 % (0-3); HEMATOCRIT 33.6 % (36.0-47.0); HEMOGLOBIN 11.2 g/dL (12.0-15.5); LYMPH # 1.3 x10^3/uL (1.0-4.8); LYMPH % 16 % (24-48); MEAN CORPUSCULAR HEMOGLOBIN 30 pg (25-35); MEAN CORPUSCULAR HGB CONC 33 g/dL (31-37); MEAN CORPUSCULAR VOLUME 90 fL (79-100); MONO # 0.2 x10^3/uL (0.0-1.1); MONO % 3 % (0-9); NEUT # 6.3 x10^3/uL (1.8-7.7); NEUT % 80 % (31-73); PLATELET COUNT 242 x10^3/uL (140-400); RED BLOOD COUNT 3.74 x10^6/uL (3.50-5.40); RED CELL DISTRIBUTION WIDTH 13.8 % (11.5-14.5); WHITE BLOOD COUNT 7.9 x10^3/uL (4.0-11.0)
--- NOTE | 2020-08-13 08:11 | RAD ---
EXAM: PA and Lateral Views of the Chest DATE: 08/13/2020 7:18 AM INDICATION: Reason: chest pain / Spl. Instructions: / History: COMPARISON: Prior 05/08/2015 FINDINGS: The heart is not enlarged. Mediastinal and hilar contours are normal. No focal parenchymal airspace opacity. No pleural effusion or pneumothorax. IMPRESSION: 1. No radiographic evidence for acute cardiopulmonary process. Electronically signed by: Rohit Leger MD (08/13/2020 8:08 AM) ANTHONY
[2020-08-13 08:51] LABS: ALBUMIN 3.5 g/dL (3.4-5.0); ALK PHOS 104 U/L (46-116); ALT (SGPT) 33 U/L (14-59); AST (SGOT) 22 U/L (15-37); DIRECT BILIRUBIN < 0.1 mg/dL (0.0-0.2); TOTAL BILIRUBIN 0.1 mg/dL (0.2-1.0)
[2020-08-13 08:58] VITALS: BP 127/81
[2020-08-13] MEDS ORDERED: METOCLOPRAMIDE HCL 10 MG/2 ML VIAL. IVP ONE (09:00)
[2020-08-13] MEDS ORDERED: METO10TA81 PO (09:49)
--- NOTE | 2020-08-13 09:49 | ED.ADGEN ---
Past Medical History Past Medical History: Diabetes-Type II, GERD, High Cholesterol, Hypertension Past Surgical History: Other Additional Past Surgical Histo: RIGHT ANKLE Smoking Status: Former Smoker Alcohol Use: Occasionally Drug Use: None General Adult EDM: Chief Complaint: GI PROBLEM HPI: HPI: Patient is 55-year-old female presents the emergency room complaining of epiga stric burning and nausea. Patient is a poor historian. She states she has been to ER, primary care, GI specialist for the symptoms previously. She intermittently gets them. She states that her medication she is using at home were not working. She is supposed to have an EGD done in the near future but has not had it done yet. She states denies any change in pain. She denies any shortness of breath, URI symptoms, fever, chills. Review of Systems: Review of Systems: Complete ROS is negative unless otherwise documented in HPI Current Medications: Current Medications Medications (Trade) Dose Ordered Sig/Sylvia Start Time Stop Time Status Last Admin Dose Admin Metoclopramide HCl (Reglan Vial) 10 mg 1X ONCE 08/13/20 09:00 08/13/20 09:01 DC 08/13/20 08:59 10 MG Multi-Ingredient Mouthwash/Gargle (Gi Cocktail) 20 ml 1X ONCE 08/13/20 07:30 08/13/20 07:31 DC 08/13/20 08:06 20 ML Allergies: Allergies: Allergies Coded Allergies Type Severity Reaction Last Updated Verified No Known Drug Allergies 05/08/15 No Physical Exam: PE: General: Awake, alert, NAD. Well Nourished, well hydrated. Cooperative HEENT: Atraumatic, EOMI, PERRL, airway patent, moist oral mucosa Neck: Supple, trachea midline Respiratory: CTA bilaterally, normal effort, no wheezing/crackles CV: RRR, no murmur, cap refill <2 GI: Soft, nondistended, nontender, no masses MSK: No obvious deformities Skin: Warm, dry, intact Neuro: A&O x3, speech NL, sensory and motor grossly intact, no focal deficits Psych: Normal affect, normal mood, not suicidal or homicidal Current Patient Data: Labs: Laboratory Tests Test 08/13/20 07:40 White Blood Count 7.9 x10^3/uL (4.0-11.0) Red Blood Count 3.74 x10^6/uL (3.50-5.40) Hemoglobin 11.2 g/dL (12.0-15.5) L Hematocrit 33.6 % (36.0-47.0) L Mean Corpuscular Volume 90 fL (79-100) Mean Corpuscular Hemoglobin 30 pg (25-35) Mean Corpuscular Hemoglobin Concent 33 g/dL (31-37) Red Cell Distribution Width 13.8 % (11.5-14.5) Platelet Count 242 x10^3/uL (140-400) Neutrophils (%) (Auto) 80 % (31-73) H Lymphocytes (%) (Auto) 16 % (24-48) L Monocytes (%) (Auto) 3 % (0-9) Eosinophils (%) (Auto) 0 % (0-3) Basophils (%) (Auto) 0 % (0-3) Neutrophils # (Auto) 6.3 x10^3/uL (1.8-7.7) Lymphocytes # (Auto) 1.3 x10^3/uL (1.0-4.8) Monocytes # (Auto) 0.2 x10^3/uL (0.0-1.1) Eosinophils # (Auto) 0.0 x10^3/uL (0.0-0.7) Basophils # (Auto) 0.0 x10^3/uL (0.0-0.2) Sodium Level 140 mmol/L (136-145) Potassium Level 4.4 mmol/L (3.5-5.1) Chloride Level 104 mmol/L (98-107) Carbon Dioxide Level 25 mmol/L (21-32) Anion Gap 11 (6-14) Blood Urea Nitrogen 19 mg/dL (7-20) Creatinine 0.8 mg/dL (0.6-1.0) Estimated GFR (Cockcroft-Gault) 90.8 Glucose Level 154 mg/dL (70-99) H Calcium Level 9.6 mg/dL (8.5-10.1) Total Bilirubin 0.1 mg/dL (0.2-1.0) L Direct Bilirubin < 0.1 mg/dL (0.0-0.2) Aspartate Amino Transferase (AST) 22 U/L (15-37) Alanine Aminotransferase (ALT) 33 U/L (14-59) Alkaline Phosphatase 104 U/L (46-116) Troponin I Quantitative < 0.017 ng/mL (0.000-0.055) Total Protein 7.0 g/dL (6.4-8.2) Albumin 3.5 g/dL (3.4-5.0) Laboratory Tests 08/13/20 07:40 Laboratory Tests 08/13/20 07:40 Vital Signs: Vital Signs Date Time Temp Pulse Resp B/P (MAP) Pulse Ox O2 Delivery O2 Flow Rate FiO2 08/13/20 08:58 74 16 127/81 (96) 99 Room Air 08/13/20 07:07 98.0 98.0 EKG: EKG: [] Heart Score: Risk Factors: Risk Factors: DM, Current or recent (<one month) smoker, HTN, HLP, family hist ory of CAD, obesity. Risk Scores: Score 0 - 3: 2.5% MACE over next 6 weeks - Discharge Home Score 4 - 6: 20.3% MACE over next 6 weeks - Admit for Clinical Observation Score 7 - 10: 72.7% MACE over next 6 weeks - Early Invasive Strategies Radiology/Procedures: Radiology/Procedures: [] Course & Med Decision Making: Course & Med Decision Making Pertinent Labs and Imaging studies reviewed. (See chart for details) Patient is a 55-year-old female who presents to the emergency room complaining of epigastric pain and nausea. This is been a chronic issue for her that she has had multiple work-ups including cardiac work-ups for. She is following with a GI specialist for this. I have encouraged her to continue following up. Work-up today is unremarkable. She is feeling better after nausea medicine. [facility] ware's test results and vitals while in the ED were fully reviewed and discussed with the patient. Patient is stable and at this time does not need admission to the hospital. We have discussed strict return precautions and the importance of following up with their Primary Care Physician. Patient stated understanding and was given an opportunity to ask any questions. Patient is in agreement with plan. Dragon Disclaimer: Dragon Disclaimer: This electronic medical record was generated, in whole or in part, using a voice recognition dictation system. Departure Departure Impression: Primary Impression: GERD (gastroesophageal reflux disease) Disposition: 01 DC HOME SELF CARE/HOMELESS Condition: STABLE Referrals: Ramy MENA MD (PCP) Patient Instructions: Diet for Gastroesophageal Reflux Disease, Adult, Gastroesophageal Reflux Disease, Adult Scripts Metoclopramide Hcl (REGLAN) 10 Mg Tablet 1 TAB PO QID PRN for NAUSEA for 10 Days, #40 TAB 0 Refills Prov: FAVIAN SIERRA MD 08/13/20 FAVIAN SIERRA MD Aug 13, 2020 09:49
--- NOTE | 2020-08-14 16:24 | EKG ---
[facility] [address] [place] [address] Test Date: 2020-08-13 Test Time: 07:24:27 Pat Name: JEANNA ISAACS Department: Room: Gender: F Project Manager: : 1965 Requested By: FAVIAN SIERRA Order Number: [id number] Reading MD: Measurements Intervals [place] Rate: 71 P: 29 DE: 172 QRS: 31 QRSD: 82 T: 43 QT: 378 QTc: 411 Interpretive Statements SINUS RHYTHM NORMAL ECG RI6.02 No previous ECG available for comparison
== END 2020-08-13 09:51 | disposition home or self-care (01) ==
LOC: ER 06:46
DX: K21.9 Gastro-esophageal reflux disease without esophagitis (principal); E11.9 Type 2 diabetes mellitus without complications; I10 Essential (primary) hypertension; E78.00 Pure hypercholesterolemia, unspecified; Z87.891 Personal history of nicotine dependence
CPT/HCPCS: 36415; 71046; 80048; 80076; 84484; 85025; 93005; 96374; 99285; J2765

== ENCOUNTER 2020-12-18 17:37 | Emergency (ER) | payer OTHER ==
[~2020-12-18] VITALS: Ht 170.2 cm; Wt 75.0 kg
[~2020-12-18 17:37] MED LIST changes: +METO10TA81 PO
--- NOTE | 2020-12-18 18:41 | PHYS DOC ---
Past Medical History Past Medical History: Diabetes-Type II, GERD, High Cholesterol, Hypertension Past Surgical History: Other Additional Past Surgical Histo: RIGHT ANKLE Smoking Status: Former Smoker Alcohol Use: Occasionally Drug Use: None General Adult EDM: Chief Complaint: SORE THROAT HPI: HPI: Patient is a 55 year old female past medical history hypertension hyperlipidemia diabetes presents with a chief complaint of sore throat ear pain fatigue runny stuffy nose since Friday. Patient denies any fevers or chills. Patient did states she had a brief episode of shortness of breath. No associated chest pain. Review of Systems: Review of Systems: Constitutional: Denies fever or chills. [] Eyes: Denies change in visual acuity. [] HENT: Positive nasal congestion or sore throat. [] Respiratory: Positive cough or shortness of breath. [] Cardiovascular: Denies chest pain or edema. [] GI: Denies abdominal pain, , vomiting, bloody stools or diarrhea. [Positive nausea] : Denies dysuria. [] Musculoskeletal: Denies back pain or joint pain. [] Integument: Denies rash. [] Neurologic: Denies focal weakness or sensory changes. [Positive headache, ] Endocrine: Denies polyuria or polydipsia. [] Lymphatic: Denies swollen glands. [] Psychiatric: Denies depression or anxiety. [] Heart Score: C/O Chest Pain: No Risk Factors: Risk Factors: DM, Current or recent (<one month) smoker, HTN, HLP, family history of CAD, obesity. Risk Scores: Score 0 - 3: 2.5% MACE over next 6 weeks - Discharge Home Score 4 - 6: 20.3% MACE over next 6 weeks - Admit for Clinical Observation Score 7 - 10: 72.7% MACE over next 6 weeks - Early Invasive Strategies Allergies: Allergies: Allergies Coded Allergies Type Severity Reaction Last Updated Verified No Known Drug Allergies 05/08/15 No Physical Exam: PE: General: alert, no acute distress. Skin: warm, dry and intact. Head:: Normocephalic, atraumatic. Neck: Trachea midline. Eyes: EOMI, Normal conjunctiva, No drainage CARDIOVASCULAR: Regular rate and rhythm RESPIRATORY: No respiratory distress Back: Full range of motion. MUSCULOSKELETAL: Full range of motion of bilateral upper and lower extremities. GASTROINTESTINAL: Abdomen soft without rebound or guarding. NEUROLOGICAL: Alert and noted to person, place and time. No neurological deficits observed Psychiatric: Cooperative. Normal judgment EKG: EKG: [] Radiology/Procedures: Radiology/Procedures: [] Course & Med Decision Making: Course & Med Decision Making Pertinent Labs and Imaging studies reviewed. (See chart for details) [] Patient was evaluated for chief complaint. Work up consisted of laboratory analysis. Results reviewed and discussed with patient negative strep negative flu Covid pending. Patient will be discharged on Zithromax advised to take Tylenol and ibuprofen as needed for pain Dragon Disclaimer: Dragon Disclaimer: This electronic medical record was generated, in whole or in part, using a voice recognition dictation system. Departure Departure Impression: Primary Impression: Upper respiratory infection Additional Impressions: Sore throat Person under investigation for COVID-19 Disposition: 01 DC HOME SELF CARE/HOMELESS Condition: STABLE Referrals: Ramy MENA MD (PCP) Patient Instructions: Upper Respiratory Infection, Adult Scripts Azithromycin (ZITHROMAX) 250 Mg Tablet 1 PKG PO UD, #6 TAB Prov: MORGAN ADAMS DO 12/18/20 MORGAN ADAMS DO Dec 18, 2020 18:41
[2020-12-18 20:03] LABS: INFLUENZA A PATIENT NEGATIVE (NEGATIVE); INFLUENZA B PATIENT NEGATIVE (NEGATIVE)
[2020-12-18] MEDS ORDERED: AZIT250T PO (20:23)
[2020-12-18 20:30] VITALS: BP 126/82
--- NOTE | 2020-12-20 13:36 | NUR ---
IP: Informed pt of negative COVID test. pt verbalized understanding.
== END 2020-12-18 20:30 | disposition home or self-care (01) ==
LOC: ER 17:37
DX: J06.9 Acute upper respiratory infection, unspecified (principal); Z20.822 Contact with and (suspected) exposure to COVID-19; J02.9 Acute pharyngitis, unspecified; R53.83 Other fatigue; R06.02 Shortness of breath; E11.9 Type 2 diabetes mellitus without complications; K21.9 Gastro-esophageal reflux disease without esophagitis; E78.00 Pure hypercholesterolemia, unspecified; I10 Essential (primary) hypertension; Z87.891 Personal history of nicotine dependence; Z98.890 Other specified postprocedural states
CPT/HCPCS: 87070; 87804; 87880; 99283; U0003; C9803

== ENCOUNTER → 2021-02-05 | Outpatient (CLI) | payer OTHER ==
--- NOTE | 2021-02-05 14:52 | RAD ---
Gastric Emptying Study 02/05/2021 Indication: Abdominal pain, nausea. Symptoms since 2009.: Procedure: Anterior and posterior projection static images are obtained over the stomach following or al administration of 2 mCi of 99 M technetium sulfur colloid in a solid meal (egg and toast). Time po ints include an immediate baseline, and 1, 2, 3, and 4 hours post ingestion. Findings: There is progressive emptying of the stomach on sequential images. Percentage retention at... One hour is 74% (normal 34.8-91%). Two hours 51 % (normal 2.7-60%). Three hours 46% (normal 0.5-28%). Four hours 28% (normal 0-10%). Impression: Abnormal 3 and 4 hour gastric emptying times. Findings consistent with moderately delayed gastric emptying. Consensus Recommendations for Gastric Emptying Scintigraphy: A Joint Report of the [employer] Society and the Society of Nuclear Medicine: J. Nucl. Med. Technol. December 05 vol. 36 no. 1 44-54 Grading for severity of delayed GE based on the 4-h value: grade 1 (mild): 11?20% retention at 4 h grade 2 (moderate): 21?35% retention at 4 h grade 3 (severe): 36?50% retention at 4 h grade 4 (very severe): >50% retention at 4 h. Electronically signed by: Jose Roberto Morton MD (02/05/2021 2:49 PM) [id number]
== END ==
LOC: NM 08:32
PROVIDERS: ATTEND Internal Medicine Gastroenterology
DX: R11.0 Nausea (principal)
CPT/HCPCS: 78264; A9541

== ENCOUNTER 2021-05-19 04:03 | Emergency (ER) | payer OTHER ==
[~2021-05-19] VITALS: Ht 170.2 cm; Wt 72.0 kg
[~2021-05-19 04:03] MED LIST changes: -LISI2.5T PO; +LISI2.5T12 PO
--- NOTE | 2021-05-19 04:39 | PHYS DOC ---
Past Medical History Past Medical History: Diabetes-Type II, GERD, High Cholesterol, Hypertension Additional Past Medical Histor: gastroparesis Past Surgical History: Other Additional Past Surgical Histo: RIGHT ANKLE Smoking Status: Former Smoker Alcohol Use: None Drug Use: None General Adult EDM: Chief Complaint: MULTIPLE COMPLAINTS HPI: HPI: Patient is a 56 year old female presents with a chief complaint of shortness of breath and difficulty breathing. Associated symptoms include fever chills headache myalgias nausea vomiting abdominal pain congestion and runny nose. Patient states symptoms been ongoing for 1 day. Patient is unvaccinated. Her vital signs she is afebrile and not hypoxic. Review of Systems: Review of Systems: Review of systems: Constitutional symptoms- Positive fever, Positive chills. Eyes- No Discharge, No Visual Loss Respiratory symptoms- Positive shortness of breath, No wheezing, No Dyspnea on Exertion Cardiovascular Systems; No chest pain, No Palpitations, No syncope Gastrointestinal symptoms: Positive abdominal pain, Positive nausea, Positive vomiting denies diarrhea. Genitourinary symptoms: No dysuria. Musculoskeletal symptoms: No back pain No extremity pain. Positive myalgias NEUROLOGICAL Symptoms: No headache, no generalized weakness; No focal Weakness Skin: No rash. Heart Score: C/O Chest Pain: N/A Risk Factors: Risk Factors: DM, Current or recent (<one month) smoker, HTN, HLP, family histo ry of CAD, obesity. Risk Scores: Score 0 - 3: 2.5% MACE over next 6 weeks - Discharge Home Score 4 - 6: 20.3% MACE over next 6 weeks - Admit for Clinical Observation Score 7 - 10: 72.7% MACE over next 6 weeks - Early Invasive Strategies Allergies: Allergies: Allergies Coded Allergies Type Severity Reaction Last Updated Verified No Known Drug Allergies 05/08/15 No Physical Exam: PE: General: alert, no acute distress. Skin: warm, dry and intact, no erythema, no rash. HENT: bilateral external ears normal, oropharynx moist, nose normal. Head:: Normocephalic, atraumatic. Neck: Trachea midline. Eyes: EOMI, Normal conjunctiva, No drainage CARDIOVASCULAR: Regular rate and rhythm RESPIRATORY: No respiratory distress Back: Full range of motion. MUSCULOSKELETAL: Full range of motion of bilateral upper and lower extremities. GASTROINTESTINAL: Abdomen soft without rebound or guarding. NEUROLOGICAL: Alert and noted to person, place and time. No neurological deficits observed Psychiatric: Cooperative. Normal judgment Current Patient Data: Vital Signs: Vital Signs Date Time Temp Pulse Resp B/P (MAP) Pulse Ox O2 Delivery O2 Flow Rate FiO2 05/19/21 04:13 98.2 71 20 139/78 (97) 98 Room Air 98.2 EKG: EKG: Performed at 0 428 Rate 66 Normal sinus rhythm No ST elevation No ST depression No acute AK [] Radiology/Procedures: Radiology/Procedures: [] Course & Med Decision Making: Course & Med Decision Making Pertinent Labs and Imaging studies reviewed. (See chart for details) [] Dragon Disclaimer: Dragon Disclaimer: This electronic medical record was generated, in whole or in part, using a voice recognition dictation system. Departure Departure Impression: Primary Impression: Viral syndrome Disposition: HOME / SELF CARE / HOMELESS Condition: STABLE Referrals: Ramy MENA MD (PCP) Patient Instructions: Viral Syndrome MORGAN ADAMS DO May 19, 2021 04:39
[2021-05-19 05:00] LABS: BILIRUBIN,URINE NEGATIVE (NEG); CLARITY,URINE CLEAR; COLOR,URINE YELLOW; NITRITE,URINE NEGATIVE (NEG); PROTEIN,URINE NEGATIVE (NEG-TRACE); UROBILINOGEN,URINE 0.2 mg/dL (0.2 mg/dL)
[2021-05-19 05:08] LABS: BACTERIA,URINE 0 /HPF (0-FEW); RBC,URINE 0 /HPF (0-2); WBC,URINE 0 /HPF (0-4)
[2021-05-19 05:19] LABS: BASO % 0 % (0-3); EOS # 0.1 x10^3/uL (0.0-0.7); EOS % 2 % (0-3); HEMATOCRIT 32.3 % (36.0-47.0); LYMPH # 2.1 x10^3/uL (1.0-4.8); LYMPH % 29 % (24-48); MEAN CORPUSCULAR HEMOGLOBIN 31 pg (25-35); MEAN CORPUSCULAR HGB CONC 34 g/dL (31-37); MEAN CORPUSCULAR VOLUME 90 fL (79-100); MONO # 0.5 x10^3/uL (0.0-1.1); MONO % 6 % (0-9); NEUT # 4.6 x10^3/uL (1.8-7.7); NEUT % 63 % (31-73); PLATELET COUNT 215 x10^3/uL (140-400); RED CELL DISTRIBUTION WIDTH 14.2 % (11.5-14.5); WHITE BLOOD COUNT 7.4 x10^3/uL (4.0-11.0)
[2021-05-19 05:20] LABS: CALCIUM 9.3 mg/dL (8.5-10.1); CREATININE 0.9 mg/dL (0.6-1.0); POTASSIUM 4.6 mmol/L (3.5-5.1)
[2021-05-19] MEDS ORDERED: ONDANSETRON ODT 4 MG TAB.RAPDIS. ONE (05:24)
[2021-05-19 05:30] VITALS: BP 163/77
[2021-05-19] MEDS ORDERED: ONDANSETRON ODT 4 MG TAB.RAPDIS. PO ONE (05:30)
[2021-05-19 05:31] LABS: ALBUMIN 3.4 g/dL (3.4-5.0); ALBUMIN/GLOBULIN RATIO 0.9 (1.0-1.7); TOTAL BILIRUBIN 0.2 mg/dL (0.2-1.0); TOTAL PROTEIN 7.1 g/dL (6.4-8.2)
--- NOTE | 2021-05-19 06:47 | EKG ---
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
--- NOTE | 2021-05-21 10:52 | NUR ---
IP: Attempted to contact pt concerning covid results. No answer, Left a voicemail to return the call.
--- NOTE | 2021-05-22 10:06 | NUR ---
IP: Attempted a second time to contact pt concerning covid results. No answer, left a voicemail to return the call.
== END 2021-05-19 05:51 | disposition home or self-care (01) ==
LOC: ER 04:03
DX: B34.9 Viral infection, unspecified (principal); Z20.822 Contact with and (suspected) exposure to COVID-19; E11.9 Type 2 diabetes mellitus without complications; K21.9 Gastro-esophageal reflux disease without esophagitis; E78.00 Pure hypercholesterolemia, unspecified; I10 Essential (primary) hypertension; Z87.891 Personal history of nicotine dependence
CPT/HCPCS: 36415; 80053; 81001; 84484; 85025; 87426; 93005; 99284; U0003; U0005

== ENCOUNTER → 2021-06-18 | Outpatient (CLI) | payer OTHER ==
[2021-05-19 05:30] VITALS: BP 163/77
--- NOTE | 2021-06-18 14:11 | KCIC ---
EXAM: Pelvis and right hip, 2 views. HISTORY: Pain. COMPARISON: None. FINDINGS: A frontal view of the pelvis and frog-leg view the right hip are obtained. There is mild-to -moderate bilateral marginal femoral head spurring. There is decreased right femoral head-neck offset , a finding suggesting chronic hip impingement. There is degenerative change at the lumbosacral junct ion. IMPRESSION: 1. Mild to moderate bilateral hip osteoarthritis and findings suggesting a component of chronic right hip impingement. 2. No acute osseous finding. Electronically signed by: Mary Duarte MD (06/18/2021 2:08 PM) [id number]
== END ==
LOC: KCIC 13:03
PROVIDERS: ATTEND Family Medicine
DX: M16.0 Bilateral primary osteoarthritis of hip (principal)
CPT/HCPCS: 73501

== ENCOUNTER 2021-06-22 14:08 | Emergency (ER) | payer OTHER ==
[~2021-06-22] VITALS: Ht 167.6 cm; Wt 70.2 kg
[2021-06-22 15:58] VITALS: BP 129/65
--- NOTE | 2021-06-22 16:23 | PHYS DOC ---
Past Medical History Past Medical History: Diabetes-Type II, GERD, High Cholesterol, Hypertension Additional Past Medical Histor: gastroparesis Past Surgical History: Other Additional Past Surgical Histo: RIGHT ANKLE Smoking Status: Former Smoker Alcohol Use: None Drug Use: None General Adult EDM: Chief Complaint: BACK PAIN OR INJURY HPI: HPI: 56-year-old female presents to the emergency department complaining of back pain for the last week that was intermittent, not related to any injury, located in the left and right side of the back radiating towards the tailbone. Not associated with any gait problems. She has tried naproxen and other NSAIDs without relief. The patient denies recent weight loss, fever, saddle anesthesia, bowel or bladder incontinence, abdominal pain, syncope, weakness or numbness, chest pain, shortness of breath, or any other medical complaints. Also denies history of spinal surgery, history of cancer. Review of Systems: Review of Systems: ROS otherwise negative except for what was mentioned in HPI Heart Score: C/O Chest Pain: No Allergies: Allergies: Allergies Coded Allergies Type Severity Reaction Last Updated Verified No Known Drug Allergies 05/08/15 No Physical Exam: PE: Constitutional: No acute distress, non-toxic appearance. HENT: Atraumatic, bilateral external ears normal, nose normal. Eyes: PERRLA, EOMI, conjunctiva normal, no discharge. Neck: Normal range of motion, supple, nontender cervical spine, no stridor. Cardiovascular: Heart rate regular rhythm. 2+ radial pulses Lungs & Thorax: No respiratory distress, symmetrical expansion. Abdomen: Soft, no tenderness Skin: Warm, dry, no rash. Extremities: No tenderness, no cyanosis, ROM intact, no edema. Back: No point or midline T or L-spine tenderness, no palpable spasm, overlying skin is unremarkable, no CVA tenderness Neurologic: Alert and oriented X 3, 5/5 strength in lower extremities bilaterally, L3-S1 dermatomes are intact and equal bilaterally, no focal deficits noted. Non ataxic gait. GCS 15. Psychologic: Affect normal, judgment normal, mood normal. Current Patient Data: Labs: Laboratory Tests Test 06/22/21 16:00 Urine Collection Type Unknown Urine Color Yellow Urine Clarity Clear Urine pH 5.5 (<5.0-8.0) Urine Specific [place] 1.010 (1.000-1.030) Urine Protein Negative mg/dL (NEG-TRACE) Urine Glucose (UA) Negative mg/dL (NEG) Urine Ketones (Stick) Negative mg/dL (NEG) Urine Blood Negative (NEG) Urine Nitrite Negative (NEG) Urine Bilirubin Negative (NEG) Urine Urobilinogen Dipstick 0.2 mg/dL (0.2 mg/dL) Urine Leukocyte Esterase Negative (NEG) Urine RBC 0 /HPF (0-2) Urine WBC Rare /HPF (0-4) Urine Squamous Epithelial Cells Occ /LPF Urine Bacteria 0 /HPF (0-FEW) Vital Signs: Vital Signs Date Time Temp Pulse Resp B/P (MAP) Pulse Ox O2 Delivery O2 Flow Rate FiO2 06/22/21 15:58 98.1 69 10 129/65 (86) 98 Room Air 98.1 Course & Med Decision Making: Course & Med Decision Making Patient with a benign exam and relatively benign history without signs or symptoms for cord compression syndrome. Patient was given Toradol and Lidoderm patch for pain. Patient felt better after interventions, will discharge home with instructions for muscle strain. My Orders - ASHVIN FARIA DO Procedure Category Date Status Time Ua, Cult If Indicated LAB 06/22/21 Complete 16:09 Ketorolac 15mg Vial PHA 06/22/21 Complete (Toradol 15mg Vial) 16:30 Lidocaine PHA 06/22/21 Complete (700mg/Patch) 16:30 Departure Departure Impression: Primary Impression: Back pain Disposition: HOME / SELF CARE / HOMELESS Condition: STABLE Referrals: Ramy MENA MD (PCP) Patient Instructions: Back Pain, Adult, [id number] Additional Instructions: You were seen in the emergency department for back pain. Your pain could be musculoskeletal in nature and could be from a pulled or strained muscle. The pain should improve with NSAID medications (ibuprofen, Aleve, etc.), stretching, and light activity. You may also use Tylenol for your back pain (no more than 3000 mg per day). Take as directed by instructions. Do not take NSAID medications if you have kidney disease. Do not take Tylenol if you have liver disease. If it does not improve, you should follow up with a primary care doctor. - Use stretching and strengthening exercises at least twice per day, continue to complete physical activity such as walking, and alternate ice and heat (ie heating pad) to the area of pain. - Return to the Emergency Department should your symptoms worsen, or should you develop a fever, change in bowel or bladder habits, weakness or numbness in your lower extremities, inability to walk, or any concern you feel warrants further evaluation. - Take Aleve or Ibuprofen, and Tylenol as needed for your pain. - You may use over the counter lidocaine patches as needed for pain. - Avoid taking narcotic medications for back pain. - Follow up with your doctor within 1-2 weeks if your symptoms are not improving. ASHVIN FARIA DO Jun 22, 2021 16:23
[2021-06-22 16:26] LABS: BILIRUBIN,URINE NEGATIVE (NEG); CLARITY,URINE CLEAR; COLOR,URINE YELLOW; NITRITE,URINE NEGATIVE (NEG); PH,URINE 5.5 (<5.0-8.0); PROTEIN,URINE NEGATIVE (NEG-TRACE); UROBILINOGEN,URINE 0.2 mg/dL (0.2 mg/dL)
[2021-06-22] MEDS ORDERED: KETOROLAC 15 MG/ML VIAL. IM ONE (16:30)
[2021-06-22] MEDS ORDERED: LIDOCAINE (700MG/PATCH) PATCH. TD ONE (16:30)
[2021-06-22 16:39] LABS: BACTERIA,URINE 0 /HPF (0-FEW); RBC,URINE 0 /HPF (0-2); WBC,URINE RARE /HPF (0-4)
== END 2021-06-22 17:50 | disposition home or self-care (01) ==
LOC: ER 14:08
DX: M54.89 Other dorsalgia (principal); K21.9 Gastro-esophageal reflux disease without esophagitis; E78.00 Pure hypercholesterolemia, unspecified; I10 Essential (primary) hypertension; E11.43 Type 2 diabetes mellitus with diabetic autonomic (poly)neuropathy; K31.84 Gastroparesis
CPT/HCPCS: 81001; 96372; 99283; J1885

== ENCOUNTER → 2021-06-26 | Outpatient (CLI) | payer OTHER ==
[2021-06-22 15:58] VITALS: BP 129/65
--- NOTE | 2021-06-27 09:20 | KCIC ---
XR LUMBAR SPINE 2-3V History: Reason: LBP, INJURY TO BACK 20 YRS AGO, REINJURED RECENTLY ON JET SKI / Spl. Instructions: / History: Technique: 3 views lumbar spine. Comparison: None. Findings: Chronic L4 compression fracture with Schmorl's node. Mild retropulsion, unchanged. Retrolisthesis L4 on L5, unchanged. No acute fracture. Moderate degenerative disc changes most prominent L3-L4 and L5-S 1. Mild facet arthropathy. Vascular calcifications. Impression: 1. Moderate multilevel lumbar spondylosis. 2. Chronic L4 compression deformity with retropulsion, unchanged. Electronically signed by: Chris Alvarez DO (06/27/2021 9:18 AM) [id number]
== END ==
LOC: KCIC 13:26
PROVIDERS: ATTEND Family Medicine
DX: S32.040A Wedge compression fracture of fourth lumbar vertebra, initial encounter for closed fracture (principal); M47.816 Spondylosis without myelopathy or radiculopathy, lumbar region; X58.XXXA Exposure to other specified factors, initial encounter; M51.37 Other intervertebral disc degeneration, lumbosacral region; M51.46 Schmorl's nodes, lumbar region; M43.16 Spondylolisthesis, lumbar region; Y93.89 Activity, other specified; Y92.89 Other specified places as the place of occurrence of the external cause; Y99.8 Other external cause status
CPT/HCPCS: 72100

== ENCOUNTER → 2021-06-28 | Outpatient (CLI) | payer OTHER ==
[2021-06-22 15:58] VITALS: BP 129/65
--- NOTE | 2021-06-28 17:19 | KCIC ---
3 view study of the sacrum and coccyx Clinical indications: Injured back and its the recently. Coccygodynia. FINDINGS: No acute fracture or displacement or lytic process is evident. No diastases of either SI yandy int or symphysis pubis is seen. IMPRESSION: No acute fracture. Electronically signed by: Pelon James MD (06/28/2021 5:17 PM) [id number]
== END ==
LOC: KCIC 14:37
PROVIDERS: ATTEND Family Medicine
DX: M53.3 Sacrococcygeal disorders, not elsewhere classified (principal)
CPT/HCPCS: 72220

== ENCOUNTER → 2021-09-20 | Outpatient (CLI) | payer OTHER ==
--- NOTE | 2021-09-21 09:45 | KCIC ---
Study: XR FOOT_LEFT 3 VIEWS Indication: Chronic left foot pain. Comparison: None. Findings: Moderate arthrosis at the first through fourth tarsometatarsal joints. Mild scattered arthrosis at th e forefoot. Chronic mild flattening of the second metatarsal head. Small plantar calcaneal spur and A chilles insertion enthesophyte. Mild spurring at the dorsum of the talar head/neck. No acute fracture , periostitis or focal erosion. Alignment is within normal limits to include the Lisfranc interval co nsidering the absence of weightbearing. Impression: 1. No acute osseous abnormality. 2. Scattered degenerative changes collectively greatest at the first through fourth tarsometatarsal j oints where there is moderate arthrosis. Electronically signed by: LLOYD CRONIN MD (09/21/2021 9:42 AM) [id number]
== END ==
LOC: KCIC 14:30
PROVIDERS: ATTEND Family Medicine
DX: M19.072 Primary osteoarthritis, left ankle and foot (principal); M77.32 Calcaneal spur, left foot
CPT/HCPCS: 73630